=== PATIENT | female | born 1980 ===

== ENCOUNTER 2021-07-30 17:35 | Emergency (ER) | payer OTHER ==
[~2021-07-30] VITALS: Ht 162.6 cm; Wt 68.5 kg
[2021-07-30] MEDS ORDERED: MEDROLPACK PO (20:16)
[2021-07-30] MEDS ORDERED: NIX59 M1 TOP (20:16)
== END 2021-07-30 20:42 | disposition home or self-care (01) ==
LOC: ER 17:35
DX: R21 Rash and other nonspecific skin eruption (principal)